=== PATIENT | male | born 1945 | race Caucasian/White ===

== ENCOUNTER 2022-08-01 00:45 | Emergency (ER) | payer MEDICARE, BC | END 2022-08-01 01:20 | disposition home or self-care (01) | LOC: SUPCPDRO 00:45 → CC.ED 00:45 | DX: S51.012A Laceration without foreign body of left elbow, initial encounter (principal); W01.0XXA Fall on same level from slipping, tripping and stumbling without subsequent striking against object, initial encounter; Y92.009 Unspecified place in unspecified non-institutional (private) residence as the place of occurrence of the external cause | CPT/HCPCS: 93005; 99283 ==

== ENCOUNTER 2023-10-10 06:59 | Day surgery (SDC) | payer OTHER, MEDICARE, BC ==
[2023-10-10] MEDS: Cyclopentolat/Tropic/Phenyleph 1 ML Ophth Drop SDV EYERT SCH (08:11)
[2023-10-10] MEDS: Lactated Ringers 1,000 ML IV SCH (08:12)
[2023-10-10] MEDS ORDERED: fentaNYL 50 MCG/ML SDV ONE (08:32)
[2023-10-10] MEDS ORDERED: Midazolam 1 MG/ML 2 ML SDV ONE (08:32)
[2023-10-10] MEDS: Moxifloxacin 0.5% Ophth Soln 3 ML Bottle EYERT SCH (08:35)
[2023-10-10] MEDS: Povidone-Iodine 5% Sterile Ophth Soln 30 ML Bottle EYERT ONE (08:45)
[2023-10-10] MEDS: Tetracaine HCl/PF 0.5% 4 ML Bottle EYERT ONE (08:45)
[2023-10-10] MEDS: Lidocaine 1% PF 2 ML SDV INJECT ONE (08:45)
[2023-10-10] MEDS: MOXIFLOXACIN PF in BSS 1 MG/ML VIAL IO ONE (08:45)
[2023-10-10] MEDS: Phenyleprhine/Ketorolac 4 ML Vial OP ONE (08:45)
[2023-10-10] MEDS: Brimonidine 0.2% Ophth Soln 5 ML Bottle EYERT ONE (08:45)
[2023-10-10] MEDS: acetaZOLAMIDE 500 MG Cap.ER PO ONE (09:25)
== END 2023-10-10 09:55 | disposition home or self-care (01) ==
LOC: CC.SDS 06:59
PROVIDERS: ATTEND Ophthalmology
DX: H25.811 Combined forms of age-related cataract, right eye (principal); H57.03 Miosis; I10 Essential (primary) hypertension; Z79.899 Other long term (current) drug therapy
CPT/HCPCS: A9270-GY; J1097; J2250; J3010; J3490; J7120